=== PATIENT | male | born 1995 | race Caucasian/White ===

== ENCOUNTER 2020-06-05 21:41 | Emergency (ER) | payer SELFPAY ==
[~2020-06-05] VITALS: Ht 177.8 cm; Wt 91.0 kg
[2020-06-05] MEDS ORDERED: IBUPROFEN 600MG TABLET PO ONE (23:30)
[2020-06-06] MEDS ORDERED: IBUP-2029 MT (01:23)
[2020-06-06 02:48] VITALS: BP 125/77
== END 2020-06-06 02:50 | disposition home or self-care (01) ==
LOC: ER 21:41
DX: S16.1XXA Strain of muscle, fascia and tendon at neck level, initial encounter (principal); S29.012A Strain of muscle and tendon of back wall of thorax, initial encounter; V49.09XA Driver injured in collision with other motor vehicles in nontraffic accident, initial encounter; Y93.89 Activity, other specified; Y92.89 Other specified places as the place of occurrence of the external cause; Y99.8 Other external cause status
CPT/HCPCS: 71045; 72040; 99284